=== PATIENT | female | born 1970 | race Two or more races ===

== ENCOUNTER 2022-12-19 09:41 | Emergency (ER) | payer OTHER ==
[~2022-12-19] VITALS: Ht 152.4 cm; Wt 50.2 kg
[2022-12-19 10:07] VITALS: BP 134/70; PULSE 66; RESP 16; TEMP 97.4; O2SAT 97
[2022-12-19] MEDS ORDERED: IBUP-1454 PO (10:50)
[2022-12-19] MEDS ORDERED: MET500T PO (10:50)
== END 2022-12-19 10:59 | disposition home or self-care (01) ==
LOC: ER 09:41
DX: S29.011A Strain of muscle and tendon of front wall of thorax, initial encounter (principal); W18.09XA Striking against other object with subsequent fall, initial encounter; Y93.89 Activity, other specified; Y92.89 Other specified places as the place of occurrence of the external cause; Y99.8 Other external cause status
CPT/HCPCS: 71101

== ENCOUNTER 2023-08-07 16:34 | Emergency (ER) | payer OTHER ==
[~2023-08-07] VITALS: Ht 152.4 cm; Wt 60.6 kg
[~2023-08-07 16:34] MED LIST: IBUP-1454 PO; MET500T PO
[2023-08-07 19:06] VITALS: BP 136/86; RESP 18; TEMP 98.7; O2SAT 96
[2023-08-07 20:34] LABS: Basophils # (auto) 0.1 10 ^3/uL (0-0.2); Basophils % (auto) 0.7 % (0.0-2.0); Eosinophils # (auto) 0.2 10 ^3/uL (0-0.8); Hematocrit 41.1 % (36.0-46.0); Mean Corpuscular Hemoglobin 29.5 pg (28.0-32.0)
[2023-08-07 20:36] LABS: Hemoglobin 13.7 g/dL (12.2-16.2); Lymphocytes # (auto) 3.6 10 ^3/uL (0.4-5.4); Lymphocytes % (auto) 45.9 % (10.0-50.0); Mean Corpuscular Hgb Conc. 33.3 g/dL (32.0-36.0); Mean Corpuscular Volume 88.8 fL (80.0-100.0); Monocytes # (auto) 0.4 10 ^3/uL (0-1.3); Monocytes % (auto) 5.3 % (0.0-12.0); Neutrophils # (auto) 3.5 10 ^3/uL (1.6-8.6); Neutrophils % (auto) 45.1 % (37.0-80.0); Nucleated Red Blood Cells % 0.1 %; Red Blood Cells 4.63 10^6/uL (4.0-5.20); Red Cell Distribution Width 12.9 % (11.8-14.3); White Blood Cell 7.8 10^3/uL (4.4-10.8)
[2023-08-07 20:53] LABS: Alanine Aminotransferase 18 U/L (7-40); Alkaline Phosphatase 103 U/L (46-116); Calcium 10.2 mg/dL (8.5-10.1); Carbon Dioxide 29 mmol/L (20-30); Chloride 105 mmol/L (98-107); Glucose 86 mg/dL (74-106)
[2023-08-07 20:54] LABS: Albumin 4.9 g/dL (3.2-4.8); Anion Gap 6 (5-15); Aspartate Aminotransferase 23 U/L (13-40); BUN/Creatinine Ratio 15.2 (10.0-20.0); Bilirubin, Total 0.3 mg/dL (0.2-1.0); Blood Urea Nitrogen 12 mg/dL (9-23); Potassium 4.4 mmol/L (3.5-5.1); Sodium 140 mmol/L (136-145); Total Protein 7.6 g/dL (5.7-8.2)
[2023-08-07] MEDS ORDERED: DexAMETHasone SOD PHOS 10MG/1ML VIAL INJ IM ONE (21:30)
[2023-08-07] MEDS ORDERED: HYDR-4902 PO (21:36)
[2023-08-07] MEDS ORDERED: IBUP1TAB5 PO (21:36)
[2023-08-07 21:53] VITALS: PULSE 76
[2023-08-07] MEDS: HYDROcodone-ACET 5/325MG TAB PO ONE (22:07)
== END 2023-08-07 22:09 | disposition home or self-care (01) ==
LOC: ER 16:34
DX: M25.512 Pain in left shoulder (principal); Z85.9 Personal history of malignant neoplasm, unspecified; Z79.899 Other long term (current) drug therapy
CPT/HCPCS: 36415; 73030; 80053; 84484; 85025; 85379; 93005

== ENCOUNTER 2024-05-27 09:33 | Inpatient (IN) | payer OTHER ==
[~2024-05-27] VITALS: Ht 152.4 cm; Wt 61.0 kg
[~2024-05-27 09:33] MED LIST changes: +HYDR-4902 PO; +IBUP1TAB5 PO
--- NOTE | 2024-05-27 10:56 | ED.PDOC ---
GI ASSESSMENT HPI Comments 54Y F with PMHx breast CA presents to ED for chief complaint epigastric abd pain x1week. Pt states the abd pain radiates to her back and then to LLE. Pt denies n/v/d, urinary symptoms, chest pain, and SOB. Pt says pain is not related to food. Pt is currently taking Anastrazole. Chief Complaint: Abdominal Pain Time Seen by MD: 10:48 Primary Care Provider: JAIME Reviewed Notes: Nurses Notes, Medications, Allergies Allergies: Coded Allergies: NO KNOWN ALLERGIES (Unverified , 12/19/22) Home Meds Active Scripts Hydrocodone-Acetaminophen (Hydrocodone Bitartrate/AC 5-325 mg) 1 Tab Tab, 1 TAB PO Q6HPRN PRN, #8 TAB severe pain Prov:RODRIGUEZKRISTIA Q REFLOW OPERATOR 08/07/23 Ibuprofen Micronized (Ibuprofen) 600 Mg Tab, 1 TAB PO Q6HPRN PRN, #20 TAB as needed for mild to moderate pain Prov:CAM RODRIGUEZ REFLOW OPERATOR 08/07/23 Metronidazole (Metronidazole) 500 Mg Tab, 500 MG PO BID, #20 TAB Prov:JAY CHOW 12/19/22 Ibuprofen (Ibuprofen) 600 Mg Tab, 1 TAB PO TID, #30 TAB Prov:JAY CHOW 12/19/22 Information Source: Patient Mode of Arrival: Ambulatory Timing: Weeks Duration: Since onset Quality: Sharp Vomitus: None Stool: Normal Severity: Mild Recent: None Recent Hx of: None Pain Location: Epigastric Modifying Factors: Nothing Associated sign and symptoms: Abdominal Pain Past Medical History PAST MEDICAL HISTORY: Cancer Surgical History: Denies all surgeries SOLAR THERMAL TECHNICIAN History: Denies all SOLAR THERMAL TECHNICIAN Hx Family History Family History: Reviewed,noncontributory to illness Social History Smoker: Non-Smoker Alcohol: Denies ETOH Use Drugs: Denies Drug Use Lives In: Home Constitutional: denies: chills, diaphoresis, fatigue, fever, malaise, sweats, weakness, others EENTM: denies: blurred vision, double vision, ear bleeding, ear discharge, ear drainage, ear pain, ear ringing, eye pain, eye redness, hearing loss, mouth pain, mouth swelling, nasal discharge, nose bleeding, nose congestion, nose pain, photophobia, tearing, throat pain, throat swelling, voice changes, others Respiratory: denies: cough, hemoptysis, orthopnea, SOB at rest, shortness of breath, SOB with excertion, stridor, wheezing, others Cardiovascular: denies: chest pain, dizzy spells, diaphoresis, Dyspnea on exertion, edema, irregular heart beat, left arm pain, lightheadedness, palpitati ons, PND, syncope, others Gastrointestinal: reports: abdominal pain; denies: abdomen distended, blood streaked bowels, constipated, diarrhea, dysphagia, difficulty swallowing, hematemesis, melena, nausea, poor appetite, poor fluid intake, rectal bleeding, rectal pain, vomiting, others Genitourinary: denies: abnormal vagina bleeding, burning, dyspareunia, dysuria, flank pain, frequency, hematuria, incontinence, pain, , vagina discharge, urgency, others Neurological: denies: dizziness, fainting, headache, left sided numbness, left sided weakness, numbness, paresthesia, pre-existing deficit, right sided numbness, right sided weakness, seizure, speech problems, tingling, tremors, weakness, others Musculoskeletal: reports: back pain, others (LLE pain); denies: gout, joint pain, joint swelling, muscle pain, muscle stiffness, neck pain Integumetry: denies: bruises, change in color, change in hair/nails, dryness, laceration, lesions, lumps, rash, wounds, others Allergic/Immunocompromised: denies: Difficulty Healing, Frequent Infections, Hives, Itching, others Hematologic/Lymphatic: denies: anemia, blood clots, easy bleeding, easy bruising, swollen glands, others Endocrine: denies: excessive hunger, excessive sweating, excessive thirst, excessive urination, flushing, intolerance to cold, intolerance to heat, unexplained weight gain, unexplained weight loss, others Psychiatric: denies: anxiety, bipolar disorder, depression, hopeless, panic disorder, schizophrenia, sleepless, suicidal, others All Other Systems: Reviewed and Negative Physical Exam General Appearance: No Apparent Distress, Normal HEENT: Normal ENT Inspection, Pharynx Normal, TMs Normal Neck: Full Range of Motion, Non-Tender, Normal, Normal Inspection Respiratory: Chest Non-Tender, Lungs Clear, No Accessory Muscle Use, No Respiratory Distress, Normal Breath Sounds Cardiovascular: No Edema, No JVD, No Murmur, No Gallop, Normal Peripheral Pulses, Regular Rate/Rhythm Breast Exam: Deferred Gastrointestinal: No Organomegaly, Non Tender, No Pulsatile Mass, Normal Bowel Sounds, Soft Genitalia: Deferred Pelvic: Deferred Rectal: Deferred Extremities: No calf tenderness, Normal capillary refill, Normal inspection, Normal range of motion, Non-tender, No pedal edema Musculoskeletal : Apperance: Normal Neurologic: Alert, dial painter II-XII nml as Tested, No Motor Deficits, Normal Affect, Normal Mood, No Sensory Deficits Cerebellar Function: NOT DONE Reflexes: NOT DONE Skin: Dry, Normal Color, Warm Lymphatic: No Adenopathy Was a procedure done? Was a procedure done?: No GI differential Dx Differential Diagnosis: Appendicitis, Gastritis/PUD, Gastroenteritis, Bacterial, Viral X-Ray, Labs, Meds, VS Vital Signs Date Time Temp Pulse Resp B/P (MAP) Pulse Ox O2 Delivery O2 Flow Rate FiO2 05/27/24 13:21 65 16 121/65 (83) 98 05/27/24 11:27 72 18 129/76 05/27/24 10:38 73 18 98 Room Air 05/27/24 10:38 72 18 129/76 (93) 99 05/27/24 09:51 97.4 71 14 131/57 (81) 98 05/27/24 09:49 81 Lab Test 05/27/24 12:13 05/27/24 11:00 Range/Units White Blood Count 7.3 4.4-10.8 10^3/uL Red Blood Count 4.24 4.0-5.20 10^6/uL Hemoglobin 13.0 12.2-16.2 g/dL Hematocrit 38.1 36.0-46.0 % Mean Corpuscular Volume 90.0 80.0-100.0 fL Mean Corpuscular Hemoglobin 30.7 28.0-32.0 pg Mean Corpuscular Hemoglobin Concent 34.1 32.0-36.0 g/dL Red Cell Distribution Width 12.5 11.8-14.3 % Platelet Count 345 140-450 10^3/uL Mean Platelet Volume 7.2 6.9-10.8 fL Neutrophils (%) (Auto) 52.5 37.0-80.0 % Lymphocytes (%) (Auto) 38.9 10.0-50.0 % Monocytes (%) (Auto) 6.7 0.0-12.0 % Eosinophils (%) (Auto) 1.6 0.0-7.0 % Basophils (%) (Auto) 0.3 0.0-2.0 % Neutrophils # (Auto) 3.8 1.6-8.6 10 ^3/uL Lymphocytes # (Auto) 2.8 0.4-5.4 10 ^3/uL Monocytes # (Auto) 0.5 0-1.3 10 ^3/uL Eosinophils # (Auto) 0.1 0-0.8 10 ^3/uL Basophils # (Auto) 0 0-0.2 10 ^3/uL Nucleated Red Blood Cells 0.1 % Sodium Level 143 136-145 mmol/L Potassium Level 4.4 3.5-5.1 mmol/L Chloride Level 111 H 98-107 mmol/L Carbon Dioxide Level 25 20-31 mmol/L Anion Gap 7 5-15 Blood Urea Nitrogen 10 9-23 mg/dL Creatinine 0.73 0.550-1.02 mg/dL Glomerular Filtration Rate Calc 96 >90 mL/min BUN/Creatinine Ratio 13.7 10.0-20.0 Serum Glucose 87 74-106 mg/dL Calcium Level 9.2 8.7-10.4 mg/dL Total Bilirubin 0.5 0.2-1.0 mg/dL Aspartate Amino Transferase (AST) 15 13-40 U/L Alanine Aminotransferase (ALT) 11 7-40 U/L Alkaline Phosphatase 83 46-116 U/L Total Protein 6.9 5.7-8.2 g/dL Albumin 4.3 3.2-4.8 g/dL Urine Color Light-yellow Yellow Urine Clarity Clear Clear Urine pH 5.5 5.0-9.0 Urine Specific [place] 1.024 1.001-1.035 Urine Protein Trace H Negative Urine Ketones Negative Negative Urine Blood Trace H Negative /uL Urine Nitrite Negative Negative Urine Bilirubin Negative Negative Urine Urobilinogen Normal Negative mg/dL Urine Leukocyte Esterase 1+ Negative /uL Urine RBC 1 0 - 4 /hpf Urine WBC 1 0 - 5 /hpf Urine Squamous Epithelial Cells Few <5 /hpf Urine Bacteria Few H None Seen /hpf Urine Mucus Few None Seen Urine Glucose Normal Normal mg/dL Current Medications Medications (Trade) Dose Ordered Sig/[place]ville Route Start Time Stop Time Status Last Admin Sodium Chloride 1,000 ml @ 1,000 mls/hr Q1H ONCE IV 05/27/24 11:00 05/27/24 11:59 DC 05/27/24 11:05 Ondansetron HCl (Zofran) 4 mg ONCE ONCE IV 05/27/24 11:00 05/27/24 11:01 DC 05/27/24 11:26 Pantoprazole Sodium (Protonix) 40 mg ONCE ONCE IV 05/27/24 11:00 05/27/24 11:01 DC 05/27/24 11:26 Morphine Sulfate 4 mg ONCE ONCE IV 05/27/24 11:00 05/27/24 11:01 DC 05/27/24 11:27 Time of 1ST Reevaluation: 11:18 Reevaluation 1ST: Unchanged Patient Education/Counseling: Diagnosis, Treatment Family Education/Counseling: No Family Present Departure 1 Departure Time of Disposition: 16:03 (Patient presented with abdominal pain that was concerning for possible appendicits, gastritis, cholecystitis, colitis, gastroenteritis, sbo, or orther possible surgical emergency. Data: 1. I ordered and reviewed the result of at least 3 labs including a CBC, BMP, and Urinalysis. 2. I independently interpreted the following tests: CT Abdoment and Pelvis is concerning for acute appendicitis .Risk:This patient has a high risk of morbidity due to further diagnostic testing or treatment and may suffer from an acute abdominal process disorder. Workup reveals concerns for acute appendicitis and patient should be admitted for further workup. and possible expert consultation. ) Impression: Primary Impression: Right lower quadrant abdominal pain Additional Impression: Acute appendicitis Qualified Codes: K35.30 - Acute appendicitis with localized peritonitis, without perforation or gangrene Disposition: ADMITTED INPATIENT Admit to: Med Surg Condition: Serious Critical Care Note Critical Care Time?: Yes Critical care comment: Intractable abdominal pain Authorized and Performed by: Angelika Saavedra MD Total critical care time: Approximately 41 minutes Due to a high probability of clinically significant, life threatening deterioration, the patient required my highest level of preparedness to intervene emergently and I personally spent this critical care time directly and personally managing the patient. This critical care time included obtaining a history; examining the patient; pulse oximetry; ordering and review of studies; arranging urgent treatment with development of a management plan; evaluation of patient's response to treatment; frequent reassessment; and, discussions with other providers. This critical care time was performed to assess and manage the high probability of imminent, life-threatening deterioration that could result in multi-organ failure. It was exclusive of separately billable procedures and treating other patients and teaching time. Please see my other sections and the rest of the note for further information on patient assessment and treatment. Stability Stability form required: No Heart Score Heart Score: Heart Score Response (Comments) Value History N/A 0 EKG N/A 0 Age N/A 0 Risk Factors N/A 0 Troponin N/A 0 Total 0 I personally scribed for ANGELIKA SAAVEDRA MD ([email or web address]) on 05/27/24 at 10:56. Electronically submitted by Yudith Avelar ([email or web address]). ANGELIKA SAAVEDRA MD May 27, 2024 10:56
[2024-05-27] MEDS: SODIUM CHLORIDE 0.9% 1,000 ML IV ONE (11:05)
[2024-05-27] MEDS: PANTOPRAZOLE 40 MG/10 ML VIAL INJ IV ONE (11:26)
[2024-05-27] MEDS: ONDANSETRON HCL 4 MG/2 ML VIAL IV ONE ×2 (11:26→22:26)
[2024-05-27] MEDS: MORPHINE SULFATE 4 MG/ML SYR/VIAL IV ONE ×2 (11:27→22:25)
[2024-05-27 11:30] LABS: Urine Bacteria FEW /hpf (None Seen); Urine Blood TRACE /uL (Negative); Urine Clarity Clear (Clear); Urine Color Light-Yellow (Yellow); Urine Mucus FEW (None Seen); Urine Protein, UAD TRACE (Negative); Urine Specific Gravity 1.024 (1.001-1.035); Urine Squamous Epithelial Cell FEW /hpf (<5); Urine Urobilinogen Normal (Negative); Urine WBC 1 /hpf (0 - 5); Urine pH 5.5 (5.0-9.0)
[2024-05-27 13:11] LABS: Basophils # (auto) 0 10 ^3/uL (0-0.2); Basophils % (auto) 0.3 % (0.0-2.0); Eosinophils # (auto) 0.1 10 ^3/uL (0-0.8); Eosinophils % (auto) 1.6 % (0.0-7.0); Hematocrit 38.1 % (36.0-46.0); Lymphocytes # (auto) 2.8 10 ^3/uL (0.4-5.4); Lymphocytes % (auto) 38.9 % (10.0-50.0); Mean Corpuscular Hemoglobin 30.7 pg (28.0-32.0); Mean Corpuscular Hgb Conc. 34.1 g/dL (32.0-36.0); Monocytes # (auto) 0.5 10 ^3/uL (0-1.3); Monocytes % (auto) 6.7 % (0.0-12.0); Neutrophils # (auto) 3.8 10 ^3/uL (1.6-8.6); Neutrophils % (auto) 52.5 % (37.0-80.0); Nucleated Red Blood Cells % 0.1 %; Platelet Count (auto) 345 10^3/uL (140-450); Red Blood Cells 4.24 10^6/uL (4.0-5.20); Red Cell Distribution Width 12.5 % (11.8-14.3); White Blood Cell 7.3 10^3/uL (4.4-10.8)
[2024-05-27 13:17] LABS: Alanine Aminotransferase 11 U/L (7-40); Alkaline Phosphatase 83 U/L (46-116); Anion Gap 7 (5-15); Aspartate Aminotransferase 15 U/L (13-40); BUN/Creatinine Ratio 13.7 (10.0-20.0); Blood Urea Nitrogen 10 mg/dL (9-23); Calcium 9.2 mg/dL (8.7-10.4); Carbon Dioxide 25 mmol/L (20-31); Glucose 87 mg/dL (74-106); Potassium 4.4 mmol/L (3.5-5.1); Sodium 143 mmol/L (136-145)
[2024-05-27 13:18] LABS: Albumin 4.3 g/dL (3.2-4.8); Bilirubin, Total 0.5 mg/dL (0.2-1.0); Chloride 111 mmol/L (98-107); Total Protein 6.9 g/dL (5.7-8.2)
[2024-05-27] MEDS: IOHEXOL 300 MG/ML 100ML BOTTLE IJ ONE (14:17)
--- NOTE | 2024-05-27 14:23 | DVH ---
Exam: CT CT AB PEL WITH IV CON ONLY History: abdominal pain hx of breast ca COMPARISON: None Technique: Multidetector spiral CT of the abdomen and pelvis was performed from lung bases to pubic symphysis. Intravenous contrast was administered during this examination. Portal venous imaging was obtained. Axial, coronal and sagittal multiplanar reformats were performed by the technologist on a separate workstation. Radiation Dose : Abdomen/Pelvis: CTDIvol 7 mGy, DLP 308 mGy*cm. CONTRAST: Type of contrast: Omni 300 Contrast injected: 100 mL Findings: Lung Bases: No acute or significant lung base finding. Normal heart size. No pleural or pericardial effusion. Liver: Left hepatic cysts measuring up to 14 mm. Gallbladder and biliary Tree: Cholelithiasis noted without secondary findings of cholecystitis or ashley iary obstruction. Spleen: Unremarkable Pancreas: The pancreas is normal in appearance without focal lesions or abnormal enhancement. Adrenal Glands: Unremarkable Kidneys: Mild left hydronephrosis. No obstructing calculus identified. Right kidney appears unremar kable. Bladder: Unremarkable Bowel: The stomach is grossly normal in appearance. Small bowel and colon are normal in caliber and d istribution. Abnormal appearing appendix with wall thickening and enhancement. Mild dilation. No si gnificant periappendiceal stranding. Several adjacent subcentimeter right lower quadrant lymph nodes. Ascites: Absent Lymphadenopathy: Right lower quadrant lymphadenopathy as above. Abdominal wall and Mesentery: Unremarkable. Vasculature: The visualized abdominal aorta is normal in size and caliber. Abdominal and pelvic vess els demonstrate normal enhancement. Pelvic Organs: Unremarkable Musculoskeletal: No aggressive focal bony lesions, acute fractures or dislocation. IMPRESSION: 1. Abnormal appearance of the appendix with mild dilation and wall thickening. Adjacent prominent lym ph nodes are noted. No significant periappendiceal stranding. Findings could be seen in the setting of acute appendicitis. A mucocele of the appendix could have a similar appearance. Clinical correla tion and surgical evaluation is recommended. 2. Hepatic cysts. Mild left hydronephrosis. No definite evidence of metastatic disease to the abdome n and pelvis. Radiation optimization: All CT scans at this facility use at least one of these dose optimization presley hniques: Automated exposure control mA and/or kV adjustment per patient size (includes targeted exams where dose is matched to clinical indication) or iterative reconstruction. HS:Y
[2024-05-27] MEDS ORDERED: DOCUSATE SOD 100 MG CAP PO PRN (20:00)
[2024-05-27] MEDS ORDERED: NITROGLYCERIN 0.4 MG SL TAB SL PRN (20:45)
[2024-05-27] MEDS ORDERED: MORPHINE SULFATE INJ 2 MG/ml SYRG IV PRN (20:45)
--- NOTE | 2024-05-27 20:47 | DVHHP2 ---
History of Present Illness Reason for Visit: Acute appendicitis History of Present Illness The patient is a 54-year-old female with past medical history of cancer who presented to [facility] ED with complaint of epigastric abdominal pain for the past 1 week duration. Patient reports symptoms progressively get worse with intractable abdominal pain, radiating to her back, to left lower extremity, rating pain 7/10 numeric scale, getting worse that prompted this visit. Patient was seen and evaluated in the ED, laboratory data shows WBC 7.3, platelets 305, sodium 143, potassium 4.4, BUN 10, creatinine 0.73, GFR 96, glucose 97, blood pressure 139/82, heart rate 72, temperature 97.4 F, O2 saturation 98% on room air. Abdomen/pelvis CT revealing abnormal appearance of the appendix with mild dilatation and wall thickening, adjacent prominent lymph nodes are noted, no significant periappendiceal stranding, finding could be seen in the setting of acute appendicitis. Patient was started on IV antibiotic regimen Rocephin, please see medication orders section in the computer. On my assessment, patient denies chest pain, no headache, no dizziness, no diarrhea, nausea, vomiting, no fever, no chills. Patient was admitted for further evaluation and medical management. Past Medical History Cancer Past Surgical History Denies all surgeries Family History Reviewed, noncontributory to the management of this case. Past Social History The patient lives at home, denies smoking, alcohol or illicit drugs abuse. Review of Systems Constitutional: No: Fever, Chills, Sweats, Weakness, Malaise, Other Eyes: No: Pain, Vision change, Conjunctivae inflammation, Eyelid inflammation, Other, Redness ENT: No: Ear pain, Ear discharge, Nose pain, Nose discharge, Nose congestion, Mouth pain, Mouth swelling, Throat pain, Throat swelling, Other Respiratory: No: Cough, Dry, Shortness of breath, SOB with excertion, Wheezing, Hemoptysis, Pleuritic Pain, Sputum, Wheezing, Other Cardiovascular: No: Chest Pain, Palpitations, Orthopnea, Paroxysmal Noc. Dyspnea, Edema, Lt Headedness, Other Gastrointestinal: Abdominal Pain; No: Nausea, Vomiting, Diarrhea, Constipation, Melena, Hematochezia, Other Genitourinary: No Dysuria, No Frequency, No Incontinence, No Hematuria, No Retention, No Other Musculoskeletal: other (LLE pain); No: neck pain, shoulder pain, arm pain, back pain, hand pain, leg pain, foot pain Skin: No: Rash, Lesions, Jaundice, Bruising, Other Neurological: No: Weakness, Numbness, Incoordination, Change in speech, Confusion, Seizures, Other Allergies: Coded Allergies: NO KNOWN ALLERGIES (Unverified , 12/19/22) Medications Current Medications Medications Dose Ordered Sig/[place]ville Route Start Time Stop Time Status Last Admin Dose Admin Ceftriaxone Sodium 50 ml @ 100 mls/hr DAILY@09 IV 05/27/24 20:08 Metronidazole 100 ml @ 100 mls/hr Q8HR IV 05/27/24 22:00 Acetaminophen/ Hydrocodone Bitart 1 tab Q4HP PRN PO 05/27/24 20:00 Ondansetron HCl 4 mg Q4HP PRN IV 05/27/24 20:00 Docusate Sodium 100 mg BIDPRN PRN PO 05/27/24 20:00 Acetaminophen 650 mg Q6HP PRN PO 05/27/24 20:00 Morphine Sulfate 2 mg Q4HPRN PRN IV 05/27/24 20:00 Dextrose/Sodium Chloride 1,000 ml @ 75 mls/hr [id number] IV 05/27/24 20:00 Exam Vital Signs Vital Signs Date Time Temp Pulse Resp B/P (MAP) Pulse Ox O2 Delivery O2 Flow Rate FiO2 05/27/24 20:32 97.9 69 142/86 (104) 97 97.9 05/27/24 17:27 16 05/27/24 10:38 Room Air General Appearance: Alert, Oriented X3, Cooperative, No acute distress HEENT: Atraumatic, PERRLA, EOMI, Mucous membr. moist/pink Respiratory: Clear to auscultation, Normal air movement Cardiovascular: Regular rate, Normal S1, Normal S2, No murmurs Abdominal: Normal bowel sounds, Soft, No hepatospenomegaly, No masses, Other (Reports tenderness) Extremities: No clubbing, No cyanosis, No edema, Normal pulses, No tenderne ss/swelling Skin: No rashes, No breakdown, No significant lesion Neuro: Normal gait, Normal speech, Strength at 5/5 X4 ext, Normal tone, Sensation intact, Cranial nerves 3-12 NL, Reflexes 2+ Psych/Mental Status: Mental status NL, Mood NL Labs/Xrays Labs Test 05/27/24 12:13 05/27/24 11:00 Range/Units White Blood Count 7.3 4.4-10.8 10^3/uL Red Blood Count 4.24 4.0-5.20 10^6/uL Hemoglobin 13.0 12.2-16.2 g/dL Hematocrit 38.1 36.0-46.0 % Mean Corpuscular Volume 90.0 80.0-100.0 fL Mean Corpuscular Hemoglobin 30.7 28.0-32.0 pg Mean Corpuscular Hemoglobin Concent 34.1 32.0-36.0 g/dL Red Cell Distribution Width 12.5 11.8-14.3 % Platelet Count 345 140-450 10^3/uL Mean Platelet Volume 7.2 6.9-10.8 fL Neutrophils (%) (Auto) 52.5 37.0-80.0 % Lymphocytes (%) (Auto) 38.9 10.0-50.0 % Monocytes (%) (Auto) 6.7 0.0-12.0 % Eosinophils (%) (Auto) 1.6 0.0-7.0 % Basophils (%) (Auto) 0.3 0.0-2.0 % Neutrophils # (Auto) 3.8 1.6-8.6 10 ^3/uL Lymphocytes # (Auto) 2.8 0.4-5.4 10 ^3/uL Monocytes # (Auto) 0.5 0-1.3 10 ^3/uL Eosinophils # (Auto) 0.1 0-0.8 10 ^3/uL Basophils # (Auto) 0 0-0.2 10 ^3/uL Nucleated Red Blood Cells 0.1 % Sodium Level 143 136-145 mmol/L Potassium Level 4.4 3.5-5.1 mmol/L Chloride Level 111 H 98-107 mmol/L Carbon Dioxide Level 25 20-31 mmol/L Anion Gap 7 5-15 Blood Urea Nitrogen 10 9-23 mg/dL Creatinine 0.73 0.550-1.02 mg/dL Glomerular Filtration Rate Calc 96 >90 mL/min BUN/Creatinine Ratio 13.7 10.0-20.0 Serum Glucose 87 74-106 mg/dL Calcium Level 9.2 8.7-10.4 mg/dL Total Bilirubin 0.5 0.2-1.0 mg/dL Aspartate Amino Transferase (AST) 15 13-40 U/L Alanine Aminotransferase (ALT) 11 7-40 U/L Alkaline Phosphatase 83 46-116 U/L Total Protein 6.9 5.7-8.2 g/dL Albumin 4.3 3.2-4.8 g/dL Urine Color Light-yellow Yellow Urine Clarity Clear Clear Urine pH 5.5 5.0-9.0 Urine Specific [place] 1.024 1.001-1.035 Urine Protein Trace H Negative Urine Ketones Negative Negative Urine Blood Trace H Negative /uL Urine Nitrite Negative Negative Urine Bilirubin Negative Negative Urine Urobilinogen Normal Negative mg/dL Urine Leukocyte Esterase 1+ Negative /uL Urine RBC 1 0 - 4 /hpf Urine WBC 1 0 - 5 /hpf Urine Squamous Epithelial Cells Few <5 /hpf Urine Bacteria Few H None Seen /hpf Urine Mucus Few None Seen Urine Glucose Normal Normal mg/dL PATIENT: MORGAN FREIRE ACCT: [id number] UNIT: [id number] : 1970 LOC: ER ROOM / BED: / AGE / SEX: 54 / F ADM STATUS: REG ER SERVICE 1052 ORDERING PHYSICIAN: ANGELIKA SAAVEDRA MD PROCEDURE(s): ABPLIV - CT AB PEL WITH IV CON ONLY REASON: abdominal pain hx of breast ca ORDER NUMBER(s): [id number], ACCESSION NUMBER(s): [id number] Exam: CT CT AB PEL WITH IV CON ONLY History: abdominal pain hx of breast ca COMPARISON: None Technique: Multidetector spiral CT of the abdomen and pelvis was performed from lung bases to pubic symphysis. Intravenous contrast was administered during this examination. Portal venous imaging was obtained. Axial, coronal and sagittal multiplanar reformats were performed by the technologist on a separate workstation. Radiation Dose : Abdomen/Pelvis: CTDIvol 7 mGy, DLP 308 mGy*cm. CONTRAST: Type of contrast: Omni 300 Contrast injected: 100 mL Findings: Lung Bases: No acute or significant lung base finding. Normal heart size. No pleural or pericardial effusion. Liver: Left hepatic cysts measuring up to 14 mm. Gallbladder and biliary Tree: Cholelithiasis noted without secondary findings of cholecystitis or biliary obstruction. Spleen: Unremarkable Pancreas: The pancreas is normal in appearance without focal lesions or abnormal enhancement. Adrenal Glands: Unremarkable Kidneys: Mild left hydronephrosis. No obstructing calculus identified. Right kidney appears unremarkable. Bladder: Unremarkable Bowel: The stomach is grossly normal in appearance. Small bowel and colon are normal in caliber and distribution. Abnormal appearing appendix with wall thickening and enhancement. Mild dilation. No significant periappendiceal stranding. Several adjacent subcentimeter right lower quadrant lymph nodes. Ascites: Absent Lymphadenopathy: Right lower quadrant lymphadenopathy as above. Abdominal wall and Mesentery: Unremarkable. Vasculature: The visualized abdominal aorta is normal in size and caliber. Abdominal and pelvic vessels demonstrate normal enhancement. Pelvic Organs: Unremarkable Musculoskeletal: No aggressive focal bony lesions, acute fractures or dislocation. IMPRESSION: 1. Abnormal appearance of the appendix with mild dilation and wall thickening. Adjacent prominent lymph nodes are noted. No significant periappendiceal stranding. Findings could be seen in the setting of acute appendicitis. A mucocele of the appendix could have a similar appearance. Clinical correlation and surgical evaluation is recommended. 2. Hepatic cysts. Mild left hydronephrosis. No definite evidence of metastatic disease to the abdomen and pelvis. Assessment/Plan Assessment/Plan Right lower quadrant abdominal pain Acute appendicitis Acute appendicitis with localized peritonitis, without perforation or gangrene Plan 1. Admit to telemetry unit 2. Breathing treatment 3. Pain control management 4. IV antibiotic management 5. Management of fluids and electrolytes 6. Consultation for surgical team 7. Diagnostic test abdomen/pelvis CT 8. DVT prophylaxis-on SCDs 9. Repeat labs CBC, CMP in a.m. 10. Continue with current medical management 11. Treatment plan discussed with patient and RN. Patient verbalized understanding. Plan discussed with: Patient, Other (RN) My Orders Orders - JEAN-PIERRE GUERRERO DNP Procedure Category Date Status Time Metronidazole PHA 05/27/24 In Process 500mg/100ml (Flagyl 22:00 Urine Bacterial BURT 05/27/24 Logged Culture 19:51 Allergies IRAIDA 05/27/24 In Process 19:51 Code Status CODE 05/27/24 Transmitted 19:51 Oxygen Per Hour RT 05/27/24 Transmitted 19:51 Hydrocodone-Acet PHA 05/27/24 In Process 5/325mg Tab (D Hanis 20:00 Ondansetron Hcl PHA 05/27/24 In Process (Zofran) 20:00 Docusate Sodium PHA 05/27/24 In Process Capsule (Colace 20:00 Complete Blood Count LAB 05/28/24 Verified 04:00 Comprehensive LAB 05/28/24 Verified Metabolic Panel 04:00 Npo (Nothing By DIET 05/28/24 Transmitted Mouth) Diet Breakfast Condition: Serious IRAIDA 05/27/24 In Process 19:51 Acetaminophen Tablet PHA 05/27/24 In Process (Tylenol Tablet) 20:00 Bedrest With Bathroom IRAIDA 05/27/24 In Process Privileg 19:51 Morphine Sulfate PHA 05/27/24 In Process Injection 20:00 Sequential IRAIDA 05/27/24 In Process Compression Device D5w/Sod Chl 0.45% PHA 05/27/24 In Process (D5w 1/2ns) 20:00 Ceftriaxone 1gm/50ml PHA 05/27/24 In Process D5w (Rocephin) 20:08 Problem List: (1) Right lower quadrant abdominal pain (2) Acute appendicitis (3) Acute appendicitis with localized peritonitis, without perforation or gangrene Date of Service: May 27, 2024 Billing Provider: JEAN-PIERRE GUERRERO DNP Common Visit Codes: 56122-UBUESND INP/OBS CARE (HIGH) JEAN-PIERRE GUERRERO DNP May 27, 2024 20:47
[2024-05-27] MEDS: ceFAZolin 2 GM/D5W50ml 50 ML IV ONE (22:25)
[2024-05-27] MEDS: metroNIDAZOLE 500MG/100ML 100 ML IV ONE (22:26)
[2024-05-27 23:03] VITALS: BP 132/77; PULSE 59; RESP 18; TEMP 97.8; O2SAT 97
[2024-05-27 23:45] VITALS: BP 132/77; PULSE 59; RESP 18; TEMP 97.8; O2SAT 97
[2024-05-27] MEDS: cefTRIAXone 1GM/50ML D5W 50 ML IV SCH (23:55)
[2024-05-28] VITALS (7 sets, daily range): BP systolic 113–137; BP diastolic 71–92; PULSE 82–96; RESP 18–20; TEMP 97.3–98.3; O2SAT 93–97
[2024-05-28] MEDS: D5W/SOD CHL 0.45% 1,000 ML IV SCH (00:29)
[2024-05-28] MEDS: metroNIDAZOLE 500MG/100ML 100 ML IV SCH (00:29)
[2024-05-28] MEDS: MORPHINE SULFATE INJ 2 MG/ml SYRG IV PRN (00:30)
[2024-05-28] MEDS ORDERED: ANAS1TAB7 PO (00:57)
[2024-05-28] MEDS: ONDANSETRON HCL 4 MG/2 ML VIAL IV PRN (04:38)
[2024-05-28 06:27] LABS: Basophils # (auto) 0 10 ^3/uL (0-0.2); Basophils % (auto) 0.4 % (0.0-2.0); Eosinophils # (auto) 0.2 10 ^3/uL (0-0.8); Eosinophils % (auto) 1.7 % (0.0-7.0); Hematocrit 36.5 % (36.0-46.0); Hemoglobin 12.6 g/dL (12.2-16.2); Lymphocytes # (auto) 1.9 10 ^3/uL (0.4-5.4); Lymphocytes % (auto) 18.3 % (10.0-50.0); Mean Corpuscular Hgb Conc. 34.6 g/dL (32.0-36.0); Mean Corpuscular Volume 89.8 fL (80.0-100.0); Monocytes # (auto) 0.7 10 ^3/uL (0-1.3); Monocytes % (auto) 6.8 % (0.0-12.0); Neutrophils # (auto) 7.5 10 ^3/uL (1.6-8.6); Neutrophils % (auto) 72.8 % (37.0-80.0); Platelet Count (auto) 367 10^3/uL (140-450); Red Blood Cells 4.07 10^6/uL (4.0-5.20); Red Cell Distribution Width 12.6 % (11.8-14.3); White Blood Cell 10.3 10^3/uL (4.4-10.8)
[2024-05-28 07:03] LABS: Alanine Aminotransferase 11 U/L (7-40); Alkaline Phosphatase 81 U/L (46-116); Anion Gap 8 (5-15); BUN/Creatinine Ratio 10.4 (10.0-20.0); Calcium 9.4 mg/dL (8.7-10.4); Carbon Dioxide 25 mmol/L (20-31); Glucose 85 mg/dL (74-106); Sodium 141 mmol/L (136-145)
[2024-05-28 07:04] LABS: Albumin 4.1 g/dL (3.2-4.8); Aspartate Aminotransferase 13 U/L (13-40); Blood Urea Nitrogen 8 mg/dL (9-23); Chloride 108 mmol/L (98-107); Potassium 3.5 mmol/L (3.5-5.1)
[2024-05-28 07:05] LABS: Total Protein 6.5 g/dL (5.7-8.2)
[2024-05-28 07:37] LABS: Bilirubin, Total 0.4 mg/dL (0.2-1.0)
[2024-05-28] MEDS: ACETAMINOPHEN 325 MG TAB PO PRN (09:53)
[2024-05-28] MEDS: HYDROcodone-ACET 5/325MG TAB PO PRN (14:43)
--- NOTE | 2024-05-28 15:36 | DVHINCON2 ---
Date of service: May 28, 2024 Family History: Diabetes mellitus G8 MOTHER Hypertension G8 MOTHER G8 FATHER Allergies: Coded Allergies: NO KNOWN ALLERGIES (Unverified , 12/19/22) Home Meds Reported Medications Anastrozole (Anastrozole) 1 Mg Tab, 1 TAB PO DAILY, #30 TAB 5 Refills 05/28/24 Current Medications Current Medications Medications (Trade) Dose Ordered Sig/[place] Route PRN Reason Start Time Stop Time Status Last Admin Ceftriaxone Sodium 50 ml @ 100 mls/hr DAILY@09 IV 05/27/24 20:08 05/28/24 09:54 Metronidazole 100 ml @ 100 mls/hr Q8HR IV 05/27/24 22:00 05/28/24 14:33 Acetaminophen/ Hydrocodone Bitart ([place] 5/325MG Tab) 1 tab Q4HP PRN PO MODERATE PAIN (4-6 PAIN SCALE) 05/27/24 20:00 05/28/24 14:43 Ondansetron HCl (Zofran) 4 mg Q4HP PRN IV NAUSEA / VOMITING 05/27/24 20:00 05/28/24 14:42 Docusate Sodium (Colace Capsule) 100 mg BIDPRN PRN PO FOR CONSTIPATION 05/27/24 20:00 Acetaminophen (Tylenol Tablet) 650 mg Q6HP PRN PO PAIN SCALE 1-3 OR TEMP>100.4 05/27/24 20:00 05/28/24 09:53 Morphine Sulfate 2 mg Q4HPRN PRN IV SEVERE PAIN (7-10 PAIN SCALE) 05/27/24 20:00 05/28/24 04:41 Dextrose/Sodium Chloride 1,000 ml @ 75 mls/hr [id number] IV 05/27/24 20:00 05/28/24 00:29 Nitroglycerin (Ntrostat Sublingual) 0.4 mg Q5MINP PRN SL FOR CHEST PAIN 05/27/24 20:45 Morphine Sulfate 2 mg Q30M PRN IV FOR CHEST PAIN 05/27/24 20:45 Vital Signs Vital Signs Date Time Temp Pulse Resp B/P (MAP) Pulse Ox O2 Delivery O2 Flow Rate FiO2 05/28/24 13:00 98.2 82 20 113/71 (85) 97 98.2 05/27/24 23:03 Room Air* 0 21 Labs/Diagnostic Data Labs Test 05/28/24 05:55 05/27/24 11:00 Range/Units White Blood Count 10.3 # 4.4-10.8 10^3/uL Red Blood Count 4.07 4.0-5.20 10^6/uL Hemoglobin 12.6 12.2-16.2 g/dL Hematocrit 36.5 36.0-46.0 % Mean Corpuscular Volume 89.8 80.0-100.0 fL Mean Corpuscular Hemoglobin 31.0 28.0-32.0 pg Mean Corpuscular Hemoglobin Concent 34.6 32.0-36.0 g/dL Red Cell Distribution Width 12.6 11.8-14.3 % Platelet Count 367 140-450 10^3/uL Mean Platelet Volume 7.3 6.9-10.8 fL Neutrophils (%) (Auto) 72.8 37.0-80.0 % Lymphocytes (%) (Auto) 18.3 10.0-50.0 % Monocytes (%) (Auto) 6.8 0.0-12.0 % Eosinophils (%) (Auto) 1.7 0.0-7.0 % Basophils (%) (Auto) 0.4 0.0-2.0 % Neutrophils # (Auto) 7.5 1.6-8.6 10 ^3/uL Lymphocytes # (Auto) 1.9 0.4-5.4 10 ^3/uL Monocytes # (Auto) 0.7 0-1.3 10 ^3/uL Eosinophils # (Auto) 0.2 0-0.8 10 ^3/uL Basophils # (Auto) 0 0-0.2 10 ^3/uL Nucleated Red Blood Cells 0.0 % Sodium Level 141 136-145 mmol/L Potassium Level 3.5 3.5-5.1 mmol/L Chloride Level 108 H 98-107 mmol/L Carbon Dioxide Level 25 20-31 mmol/L Anion Gap 8 5-15 Blood Urea Nitrogen 8 L 9-23 mg/dL Creatinine 0.77 0.550-1.02 mg/dL Glomerular Filtration Rate Calc 90 >90 mL/min BUN/Creatinine Ratio 10.4 10.0-20.0 Serum Glucose 85 74-106 mg/dL Calcium Level 9.4 8.7-10.4 mg/dL Total Bilirubin 0.4 0.2-1.0 mg/dL Aspartate Amino Transferase (AST) 13 13-40 U/L Alanine Aminotransferase (ALT) 11 7-40 U/L Alkaline Phosphatase 81 46-116 U/L Total Protein 6.5 5.7-8.2 g/dL Albumin 4.1 3.2-4.8 g/dL Urine Color Light-yellow Yellow Urine Clarity Clear Clear Urine pH 5.5 5.0-9.0 Urine Specific [place] 1.024 1.001-1.035 Urine Protein Trace H Negative Urine Ketones Negative Negative Urine Blood Trace H Negative /uL Urine Nitrite Negative Negative Urine Bilirubin Negative Negative Urine Urobilinogen Normal Negative mg/dL Urine Leukocyte Esterase 1+ Negative /uL Urine RBC 1 0 - 4 /hpf Urine WBC 1 0 - 5 /hpf Urine Squamous Epithelial Cells Few <5 /hpf Urine Bacteria Few H None Seen /hpf Urine Mucus Few None Seen Urine Glucose Normal Normal mg/dL Assessment [id number] AFEBRILE VSS ABD SOFT TENDER RUQ AND RLQ NO REBOUND CT ABD PELVIS NO CONFIRMING AC APPENDICITIS CHOLELITHIASIS CLOSE OBSERVATION REPEAT CT ABD AND PELVIS WITH PO CONTRAST TO DETERMINE THE NEED FOR SURGERY Plan discussed with: Patient GENO GUZMÁN MD May 28, 2024 15:36
--- NOTE | 2024-05-28 19:43 | DVHINCON2 ---
DATE OF CONSULTATION: 05/28/2024 HISTORY OF PRESENT ILLNESS: A 54 years old, coming in with upper abdominal pain with history of cancer, mostly the pain is in the epigastric location over the past 1 week, some nausea, vomiting, but no diarrhea. She had some mild constipation and then diarrhea. No fever or chills. No hematemesis, melena. No bleeding per rectum. PAST MEDICAL HISTORY: Some cancer is reported, but details are not clear. PAST SURGICAL HISTORY: Nothing significant. PHYSICAL EXAMINATION: VITAL SIGNS: Afebrile, stable signs. HEENT: With no evidence of pallor, cyanosis, or jaundice. NECK: Supple, nontender with no thyromegaly, lymphadenopathy. CHEST AND LUNGS: Clear. HEART: Within normal limits. ABDOMEN: Soft, tender in the upper abdomen, also in the lower abdomen. No rebound. EXTREMITIES: Unremarkable. NEUROLOGIC: Intact. CLINICAL IMPRESSION: Rule out acute appendicitis. She also has cholelithiasis. The CT scan is not confirming acute appendicitis, but it cannot be ruled out, so the plan will to keep her under close observation, repeat the CT scan with p.o. contrast to determine the need for surgery. MD DOMINIK French/KELSIE TID: [id number] RECEIPT: [id number] cc: Clark Golud DNP
--- NOTE | 2024-05-28 21:56 | DVHPN2 ---
Subjective Patient continues to have abdominal pain, conveniently tolerate p.o.. Abdomen is tender right lower quadrant and right upper quadrant. No acute abdomen signs. No peritonitis no guarding or rigidity. Surgery following we will plan to repeat imaging. Reviewed: H&P Changes from previous H/P or p: No Changes General: Per HPI Musculoskeletal: other Skin: No Rash, No Lesions, No Jaundice, No Bruising, No Other Objective Vitals Vital Signs Date Time Temp Pulse Resp B/P (MAP) Pulse Ox O2 Delivery O2 Flow Rate FiO2 05/28/24 21:00 97.3 89 20 133/85 (101) 93 97.3 05/28/24 20:00 Room Air* 0 21 Intake/Output Intake and Output 05/28/24 07:00 Intake Total 2450 ml Balance 2450 ml Intake Oral 0 ml IV Total 2450 ml # Voids 1 Exam GEN: Healthy appearing, well-developed, patient is mild distress from abdominal pain HEENT: NC/AT; MMM. CV: RRR, no m/r/g. LUNGS: Bibasilar rales ABD: Abdomen is tender right lower quadrant and right upper quadrant. No acute abdomen signs. No peritonitis no guarding or rigidity. EXT: skin Warm, well perfused. no rashes. No clubbing, cyanosis, or edema. NEURO: Ambulating with no limitations. No focal deficits. Patient continues to have abdominal pain, conveniently tolerate p.o.. Abdomen is tender right lower quadrant and right upper quadrant. No acute abdomen signs. No peritonitis no guarding or rigidity. Surgery following we will plan to repeat imaging. Medications Current Medications Medications Dose Ordered Sig/[place]ville Route Start Time Stop Time Status Last Admin Dose Admin Ceftriaxone Sodium 50 ml @ 100 mls/hr DAILY@09 IV 05/27/24 20:08 05/28/24 09:54 100 MLS/HR Metronidazole 100 ml @ 100 mls/hr Q8HR IV 05/27/24 22:00 05/28/24 14:33 100 MLS/HR Acetaminophen/ Hydrocodone Bitart 1 tab Q4HP PRN PO 05/27/24 20:00 05/28/24 14:43 1 TAB Ondansetron HCl 4 mg Q4HP PRN IV 05/27/24 20:00 05/28/24 14:42 4 MG Docusate Sodium 100 mg BIDPRN PRN PO 05/27/24 20:00 Acetaminophen 650 mg Q6HP PRN PO 05/27/24 20:00 05/28/24 09:53 650 MG Morphine Sulfate 2 mg Q4HPRN PRN IV 05/27/24 20:00 05/28/24 04:41 2 MG Dextrose/Sodium Chloride 1,000 ml @ 75 mls/hr [id number] IV 05/27/24 20:00 05/28/24 00:29 75 MLS/HR Nitroglycerin 0.4 mg Q5MINP PRN SL 05/27/24 20:45 Morphine Sulfate 2 mg Q30M PRN IV 05/27/24 20:45 Laboratory Results Laboratory Tests 05/28/24 05:55 Chemistry Test 05/28/24 05:55 Albumin 4.1 g/dL (3.2-4.8) Calcium Level 9.4 mg/dL (8.7-10.4) Total Protein 6.5 g/dL (5.7-8.2) LFT Test 05/28/24 05:55 Alanine Aminotransferase (ALT) 11 U/L (7-40) Alkaline Phosphatase 81 U/L (46-116) Aspartate Amino Transferase (AST) 13 U/L (13-40) Total Bilirubin 0.4 mg/dL (0.2-1.0) Urinalysis Test 05/27/24 11:00 Urine Color Light-yellow (Yellow) Urine Clarity Clear (Clear) Urine pH 5.5 (5.0-9.0) Urine Specific [place] 1.024 (1.001-1.035) Urine Protein Trace (Negative) H Urine Ketones Negative (Negative) Urine Blood Trace /uL (Negative) H Urine Nitrite Negative (Negative) Urine Bilirubin Negative (Negative) Urine Urobilinogen Normal mg/dL (Negative) Urine Leukocyte Esterase 1+ /uL (Negative) Urine RBC 1 /hpf (0 - 4) Urine WBC 1 /hpf (0 - 5) Urine Squamous Epithelial Cells Few /hpf (<5) Urine Bacteria Few /hpf (None Seen) H Urine Mucus Few (None Seen) Urine Glucose Normal mg/dL (Normal) Labs and/or images reviewed: Labs reviewed by me, Image(s) reviewed by me Assessment/Plan Assessment/Plan 05/28-Abdomen is tender right lower quadrant and right upper quadrant. No acute abdomen signs. No peritonitis no guarding or rigidity. # acute intractable abdominal pain # possible acute appendicitis, rule out # left hydronephrosis possible # intravascular volume depletion # decreased p.o. tolerance, intractable nausea - patient presenting with acute abdominal pain epigastric radiating to the back, - lipase not collected on admit, no leukocytosis no neutrophilia - UA SG 1.024, concentrated urine - CT abdpelv w/o Con - left hydronephrosis possible, possible acute appendicitis. -started on IV fluids - IV antibiotics ceftriaxone and Flagyl IV -surgery consulted and following, -NPO midnight, clear liquid diet otherwise -we will repeat CT abdomen pelvis with p.o. contrast as per surgery recommendations Diet to liquid diet, NPO midnight DVT prophylaxis Lovenox subQ GI prophylaxis Protonix IV daily Med tele Full code Plan discussed with: Patient My Orders Orders - JAMAL LY MD Procedure Category Date Status Time Ct Abd Pelvis W CT 05/28/24 Transmitted Con-Oral & Iv 21:44 Date of Service: May 28, 2024 Billing Provider: JAMAL LY MD Common Visit Codes: [id number] INP/OBS CARE(HIGH) JAMAL LY MD May 28, 2024 21:56
[2024-05-29] VITALS (8 sets, daily range): BP systolic 100–160; BP diastolic 63–89; PULSE 80–100; RESP 13–20; TEMP 98–99.3; O2SAT 93–100
[2024-05-29] MEDS ORDERED: GASTROGRAFIN 30 ML SOL ONE (07:45)
--- NOTE | 2024-05-29 11:24 | DVH ---
Exam: CT CT AB PEL WITH ORAL CON ONLY History: DIFFERENTIATE CAUSE OF ABD PAIN Comparison Study: None available at time of dictation. Technique: Multidetector spiral CT of the abdomen was performed from lung bases to iliac crest. Imag ing was performed without IV contrast. Axial, coronal and sagittal multiplanar reformats were obtain ed from the axial data set by the technologist. Radiation Dose : CT Dose: CTDI volume is 5.97 mGy. Dose-length product is 268 mGy*cm Findings: Evaluation of solid organs is limited due to lack of intravenous contrast use. Lung Bases: Subsegmental atelectasis in the lung bases. Liver: 1.6 cm hypodense lesion in the hepatic segment 2 at series 2 image 15. It is indeterminate. Gallbladder and Biliary Tree: Multiple dependent layering of gallbladder calculi, measuring collectiv selina up to 1 cm. Hyperdense sludge in the gallbladder. Spleen: Unremarkable Pancreas: The pancreas is grossly normal in appearance. Adrenal Glands: Unremarkable Kidneys: Kidneys are grossly normal without calculi or hydronephrosis. Left extrarenal pelvis. Visualized Bowel: The appendix is swollen and inflamed with maximum diameter of 1.2 cm. Its tip is i n the right pelvis. There is eccentric thickening of the cecum and terminal ileum. Periappendiceal fa t stranding and small pelvic free fluid. No focal fluid collection. Multiple enlarged and prominent r ight mesenteric lymph nodes. Ascites: Small amount of pelvic free fluid. Lymphadenopathy: Mesenteric lymphadenopathy in the right lower quadrant. Vasculature: The visualized abdominal aorta is normal in size and caliber. Evaluation of abdominal a nd pelvic vessels is limited due to lack of intravenous contrast. Musculoskeletal: No aggressive focal bony lesions, acute fractures or dislocation. IMPRESSION: 1. CT findings are consistent with acute appendicitis. No focal fluid collection. Surgical consultat ion is suggested. 2. Indeterminate hypodense lesion in the hepatic segment 2, further evaluation with CT or MRI liver m ass protocol is suggested. Acute appendicitis Critical Result: Acute appendicitis Alert Findings discussed with MAYA Lebron, at 05/29/2024 02:21 PM, and acknowledged receipt and understanding of the findings. Radiation optimization: All CT scans at this facility use at least one of these dose optimization presley hniques: automated exposure control mA and/or kV adjustment per patient size (includes targeted exam s where dose is matched to clinical indication) or iterative reconstruction.
[2024-05-29] MEDS ORDERED: ceFAZolin 2 GM/D5W100ml 100 ML IV ONE (13:11)
[2024-05-29] MEDS ORDERED: LIDOCAINE 1% HCL (LOCAL ANESTH.) INJ 20ML MDV ONE (13:40)
[2024-05-29] MEDS ORDERED: BUPIVACAINE 0.25% INJ 50ML VIAL ONE (13:40)
[2024-05-29] MEDS ORDERED: PROPOFOL 10 MG/ML 20 ML IV ONE (13:42)
[2024-05-29] MEDS ORDERED: LIDOCAINE 2% (LOCAL ANESTH.) PF 5ml SDV ONE (13:42)
[2024-05-29] MEDS ORDERED: fentaNYL CITRATE 100 MCG/2 ML VL ONE (13:42)
[2024-05-29] MEDS ORDERED: MIDAZOLAM HCL 2MG/2ML 2ml VIAL (1mg/ml) ONE (13:42)
[2024-05-29] MEDS ORDERED: ONDANSETRON HCL 4 MG/2 ML VIAL ONE ×2 (13:42→16:02)
--- NOTE | 2024-05-29 13:51 | DVH ---
CHEST RADIOGRAPH Indication: surgery Technique: Single frontal view of the chest was obtained COMPARISON: None FINDINGS: Lines and Tubes: None Lungs: Clear Pleura: No effusion. No pneumothorax. Cardiomediastinal contours: Unremarkable Bones: Unremarkable IMPRESSION: 1. No acute disease.
--- NOTE | 2024-05-29 15:26 | DVHOP2 ---
Operative Report [id number] AC APPENDICITIS PERICECAL INFLAMMATION DENSE ADHESIONS INTRAABD ABSCESS DRAINAGE OF INTRAABD ABSCESS LYSIS OF ADHESIONS LAP APPENDECTOMY. PARTIAL CECECTOMY EBL 25 CC ONE DRAIN NO COMPLICATIONS GENO GUZMÁN MD May 29, 2024 15:26
[2024-05-29] MEDS ORDERED: GLYCOPYRROLATE 0.2 MG/ML 1ML VIAL ONE (15:36)
[2024-05-29] MEDS ORDERED: NEOSTIGMINE 1 MG/ML INJ (10mg/10ML VIAL) ONE (15:36)
[2024-05-29] MEDS ORDERED: HYDROmorphone HCL 2 MG/ML VL/or syr IV PRN (16:00)
--- NOTE | 2024-05-29 16:01 | DVHOP ---
DATE OF SURGERY: 05/29/2024 PREOPERATIVE DIAGNOSIS: Acute appendicitis. She was found to have intra-abdominal abscess with dense adhesions and cecal inflammation as well. POSTOPERATIVE DIAGNOSIS: Acute appendicitis. She was found to have intra-abdominal abscess with dense adhesions and cecal inflammation as well. PROCEDURE: Laparoscopic appendectomy with drainage of intraabdominal abscess and a partial cecectomy, lysis of adhesions. SURGEON: Curtis Xie MD POLICE INVESTIGATOR: None. ANESTHESIA: General. ESTIMATED BLOOD LOSS: Close to 25 mL. DRAINS: One drain was used. COMPLICATIONS: No complications were encountered. DESCRIPTION OF PROCEDURE: The patient was prepped and draped in the usual sterile fashion in the supine position and a supraumbilical incision was applied, was taken down to the fascia. The Veress needle was introduced and CO2 insufflation was started to a pressure of 15 mmHg. The needle was withdrawn, replaced by the 5 mm trocar and a telescope was introduced and the appendix was found to be acutely inflamed, distended into the pelvis and the pericecal inflammation was noted as well, and there were dense adhesions in that location as well in the ileocecal location and the small bowel itself was fine. Two 5 mm ports were applied, one above the symphysis, the third midway between the upper two and the camera was moved to the lowermost 5 mm port, able to proceed with surgery. The patient was placed in the Trendelenburg and right upper lateral position, the adhesions were taken down. The appendix was released. The cecum had to be released from the paracolic gutter using Harmonic device and the base of the appendix was identified and the transection was done above this to allow the inflamed cecal component to be removed with the specimen as well. This was done using Endo-ALPA stapling device; and once this was done, the mesoappendix also was transected using the Endo-ALPA stapling device, superimposed with a clip as well. Appendix released in this fashion, was retrieved from the supraumbilical wound in the EndoCatch bag without any complication. Abscess was suctioned out from the right lower quadrant as well as the pelvis and a size 19 Minor drainage tube was placed to drain the right lower quadrant along the pelvis, bringing out from the lowermost 5 mm port. After the Tonia powder was applied to the cecal base for hemostasis, the tip of the drainage tube was placed in the right lower quadrant with the loop going into the pelvis, bringing out from the lowermost 5 mm port. After that, one port had been withdrawn, securing the drain with a nylon suture, EndoClose suture was used for the fascial closure of the supraumbilical wound. All the ports were withdrawn after all the CO2 been let out and the patient was placed in supine, the remainder of the wounds were brought together using 3-0 Monocryl suture in a subcuticular fashion. Surgical glue was applied. The patient tolerated the procedure well and was taken back to recovery room in stable condition. MD DOMINIK French/ELLIOTT TID: [id number] RECEIPT: [id number] cc: JAMAL HOLBROOK
[2024-05-29] MEDS: ONDANSETRON HCL 4 MG/2 ML VIAL IV ONE (16:04)
[2024-05-29] MEDS: HYDROmorphone HCL 2 MG/ML VL/or syr IV PRN (16:08)
[2024-05-29] MEDS ORDERED: HYDROmorphone HCL 2 MG/ML VL/or syr ONE (16:08)
--- NOTE | 2024-05-29 20:38 | DVHPN2 ---
Subjective 05/29 - cont have pain in RLQ. reepeat imaging this am with surgery. CT w po con confirms appendicitis, taken to OR. 05/28 - Patient continues to have abdominal pain, conveniently tolerate p.o.. Abdomen is tender right lower quadrant and right upper quadrant. No acute abdomen signs. No peritonitis no guarding or rigidity. Surgery following we will plan to repeat imaging. Reviewed: H&P Changes from previous H/P or p: No Changes General: Per HPI Musculoskeletal: other Skin: No Rash, No Lesions, No Jaundice, No Bruising, No Other Objective Vitals Vital Signs Date Time Temp Pulse Resp B/P (MAP) Pulse Ox O2 Delivery O2 Flow Rate FiO2 05/29/24 17:00 98.0 97 19 160/89 (112) 98 98.0 05/29/24 16:20 Nasal Cannula 2.0 05/29/24 08:00 21 Intake/Output Intake and Output 05/29/24 07:00 Intake Total 370 ml Balance 370 ml Intake Oral 220 ml IV Total 150 ml # Voids 7 Exam GEN: Healthy appearing, well-developed, patient is mild distress from abdominal pain HEENT: NC/AT; MMM. CV: RRR, no m/r/g. LUNGS: Bibasilar rales ABD: Abdomen is tender right lower quadrant and right upper quadrant. No acute abdomen signs. No peritonitis no guarding or rigidity. EXT: skin Warm, well perfused. no rashes. No clubbing, cyanosis, or edema. NEURO: Ambulating with no limitations. No focal deficits. Patient continues to have abdominal pain, conveniently tolerate p.o.. Abdomen is tender right lower quadrant and right upper quadrant. No acute abdomen signs. No peritonitis no guarding or rigidity. Surgery following we will plan to repeat imaging. Medications Current Medications Medications Dose Ordered Sig/[place] Route Start Time Stop Time Status Last Admin Dose Admin Ceftriaxone Sodium 50 ml @ 100 mls/hr DAILY@09 IV 05/27/24 20:08 05/29/24 09:48 100 MLS/HR Metronidazole 100 ml @ 100 mls/hr Q8HR IV 05/27/24 22:00 05/29/24 17:18 100 MLS/HR Acetaminophen/ Hydrocodone Bitart 1 tab Q4HP PRN PO 05/27/24 20:00 05/28/24 14:43 1 TAB Ondansetron HCl 4 mg Q4HP PRN IV 05/27/24 20:00 05/29/24 20:23 4 MG Docusate Sodium 100 mg BIDPRN PRN PO 05/27/24 20:00 Acetaminophen 650 mg Q6HP PRN PO 05/27/24 20:00 05/28/24 09:53 650 MG Morphine Sulfate 2 mg Q4HPRN PRN IV 05/27/24 20:00 05/28/24 04:41 2 MG Dextrose/Sodium Chloride 1,000 ml @ 75 mls/hr [id number] IV 05/27/24 20:00 05/29/24 17:18 75 MLS/HR Nitroglycerin 0.4 mg Q5MINP PRN SL 05/27/24 20:45 Morphine Sulfate 2 mg Q30M PRN IV 05/27/24 20:45 Laboratory Results Laboratory Tests 05/28/24 05:55 Urinalysis Test 05/27/24 11:00 Urine Color Light-yellow (Yellow) Urine Clarity Clear (Clear) Urine pH 5.5 (5.0-9.0) Urine Specific [place] 1.024 (1.001-1.035) Urine Protein Trace (Negative) H Urine Ketones Negative (Negative) Urine Blood Trace /uL (Negative) H Urine Nitrite Negative (Negative) Urine Bilirubin Negative (Negative) Urine Urobilinogen Normal mg/dL (Negative) Urine Leukocyte Esterase 1+ /uL (Negative) Urine RBC 1 /hpf (0 - 4) Urine WBC 1 /hpf (0 - 5) Urine Squamous Epithelial Cells Few /hpf (<5) Urine Bacteria Few /hpf (None Seen) H Urine Mucus Few (None Seen) Urine Glucose Normal mg/dL (Normal) Microbiology Microbiology Date/Time Source Procedure Growth Status 05/27/24 11:00 Voided Urine Urine Culture - Preliminary Resulted Labs and/or images reviewed: Labs reviewed by me, Image(s) reviewed by me Assessment/Plan Assessment/Plan update 05/29 - cont have pain in RLQ. reepeat imaging this am with surgery. CT w po con confirms appendicitis, taken to OR. # acute intractable abdominal pain # possible acute appendicitis, rule out # left hydronephrosis possible # intravascular volume depletion # decreased p.o. tolerance, intractable nausea - patient presenting with acute abdominal pain epigastric radiating to the back, - lipase not collected on admit, no leukocytosis no neutrophilia - UA SG 1.024, concentrated urine - CT abdpelv w/o Con - left hydronephrosis possible, possible acute appendicitis. -started on IV fluids - IV antibiotics ceftriaxone and Flagyl IV -surgery consulted and following, s/p appendicitis. - CLD Diet CLD DVT prophylaxis Lovenox subQ GI prophylaxis Protonix IV daily Med tele Full code Plan discussed with: Patient My Orders Orders - JAMAL LY MD Procedure Category Date Status Time Ct Ab Pel With Oral CT 05/29/24 Resulted Con Only 07:37 Date of Service: May 29, 2024 Billing Provider: JAMAL LY MD Common Visit Codes: [id number] INP/OBS CARE(HIGH) JAMAL LY MD May 29, 2024 20:38
[2024-05-30] VITALS (8 sets, daily range): BP systolic 123–142; BP diastolic 69–89; PULSE 62–94; RESP 16–18; TEMP 98.3–99.9; O2SAT 92–98
[2024-05-30 07:00] LABS: Basophils # (auto) 0 10 ^3/uL (0-0.2); Basophils % (auto) 0.2 % (0.0-2.0); Eosinophils # (auto) 0 10 ^3/uL (0-0.8); Eosinophils % (auto) 0.1 % (0.0-7.0); Hematocrit 35.6 % (36.0-46.0); Hemoglobin 12.3 g/dL (12.2-16.2); Lymphocytes # (auto) 2.2 10 ^3/uL (0.4-5.4); Lymphocytes % (auto) 21.1 % (10.0-50.0); Mean Corpuscular Hemoglobin 30.6 pg (28.0-32.0); Mean Corpuscular Hgb Conc. 34.4 g/dL (32.0-36.0); Mean Corpuscular Volume 88.9 fL (80.0-100.0); Monocytes % (auto) 10.1 % (0.0-12.0); Neutrophils # (auto) 7.1 10 ^3/uL (1.6-8.6); Neutrophils % (auto) 68.5 % (37.0-80.0); Platelet Count (auto) 380 10^3/uL (140-450); Red Blood Cells 4.01 10^6/uL (4.0-5.20); Red Cell Distribution Width 12.6 % (11.8-14.3); White Blood Cell 10.4 10^3/uL (4.4-10.8)
[2024-05-30 07:38] LABS: Alkaline Phosphatase 73 U/L (46-116); Anion Gap 9 (5-15); BUN/Creatinine Ratio 12.3 (10.0-20.0); Carbon Dioxide 26 mmol/L (20-31); Chloride 106 mmol/L (98-107); Glucose 93 mg/dL (74-106); Sodium 141 mmol/L (136-145)
[2024-05-30 07:39] LABS: Albumin 3.8 g/dL (3.2-4.8); Total Protein 6.4 g/dL (5.7-8.2)
[2024-05-30 07:43] LABS: Alanine Aminotransferase < 9 U/L (7-40); Aspartate Aminotransferase 11 U/L (13-40); Bilirubin, Total 0.3 mg/dL (0.2-1.0); Blood Urea Nitrogen 9 mg/dL (9-23); Potassium 3.4 mmol/L (3.5-5.1)
--- NOTE | 2024-05-30 12:01 | DVHPN2 ---
Progress Note Date Seen: May 30, 2024 Medical Necessity Reason Pt with a Central, PICC or Fol: No Objective vital signs Vital Sign Date Time Temp Pulse Resp B/P (MAP) Pulse Ox O2 Delivery O2 Flow Rate FiO2 05/30/24 09:00 98.6 87 16 132/69 (90) 95 98.6 05/30/24 08:00 Nasal Cannula* 1 24 Total Intake and Output 05/29/24 05/29/24 05/30/24 15:00 23:00 07:00 Intake Total 50 ml 100 ml 900 ml Output Total 30 ml 450 ml Balance 50 ml 70 ml 450 ml medications Current Medications Medications Dose Ordered Sig/[place] Route Start Time Stop Time Status Last Admin Dose Admin Ceftriaxone Sodium 50 ml @ 100 mls/hr DAILY@09 IV 05/27/24 20:08 05/30/24 09:08 100 MLS/HR Metronidazole 100 ml @ 100 mls/hr Q8HR IV 05/27/24 22:00 05/30/24 05:12 100 MLS/HR Acetaminophen/ Hydrocodone Bitart 1 tab Q4HP PRN PO 05/27/24 20:00 05/30/24 11:29 1 TAB Ondansetron HCl 4 mg Q4HP PRN IV 05/27/24 20:00 05/29/24 20:23 4 MG Docusate Sodium 100 mg BIDPRN PRN PO 05/27/24 20:00 Acetaminophen 650 mg Q6HP PRN PO 05/27/24 20:00 05/28/24 09:53 650 MG Morphine Sulfate 2 mg Q4HPRN PRN IV 05/27/24 20:00 05/28/24 04:41 2 MG Dextrose/Sodium Chloride 1,000 ml @ 75 mls/hr [id number] IV 05/27/24 20:00 05/29/24 17:18 75 MLS/HR Nitroglycerin 0.4 mg Q5MINP PRN SL 05/27/24 20:45 Morphine Sulfate 2 mg Q30M PRN IV 05/27/24 20:45 laboratory and microbiology Laboratory Tests 05/30/24 06:07 Test 05/30/24 06:07 Range/Units Serum Glucose 93 74-106 mg/dL Microbiology Date/Time Source Procedure Growth Status 05/27/24 11:00 Voided Urine Urine Culture - Preliminary Resulted Problem List/Assessment/Plan Problem List/Assessment/Plan AFEBRILE VSS ABD SOFT NO BM DRAIN 30 CC SEROSANGUINEOUS WOUNDS HEALED NO COMPLICATIONS CONTINUE CLEAR LIQUIDS Plan discussed with: Patient My Orders My Orders Orders - GENO GUZMÁN MD Procedure Category Date Status Time Chest Xray 1 View XY 05/29/24 Resulted 12:26 Obtain Consent For: ORDERS 05/29/24 Transmitted 13:13 Obtain Consent For [place] 05/29/24 In Process Anesthesia 13:13 GENO GUZMÁN MD May 30, 2024 12:01
--- NOTE | 2024-05-30 14:23 | DVHPN2 ---
Subjective Update the 05/30 patient is started on diet this morning. Abdominal pain still present, hypoactive bowel sounds. Patient does not have any nausea and feeling much improved. Surgery to eval today. We will keep patient until bowel function returns. still requiring pain control. 05/29 - cont have pain in RLQ. reepeat imaging this am with surgery. CT w po con confirms appendicitis, taken to OR. 05/28 - Patient continues to have abdominal pain, conveniently tolerate p.o.. Abdomen is tender right lower quadrant and right upper quadrant. No acute abdomen signs. No peritonitis no guarding or rigidity. Surgery following we will plan to repeat imaging. Reviewed: H&P Changes from previous H/P or p: No Changes General: Per HPI Musculoskeletal: other Skin: No Rash, No Lesions, No Jaundice, No Bruising, No Other Objective Vitals Vital Signs Date Time Temp Pulse Resp B/P (MAP) Pulse Ox O2 Delivery O2 Flow Rate FiO2 05/30/24 13:00 98.3 76 16 123/73 (90) 94 98.3 05/30/24 08:00 Nasal Cannula* 1 24 Intake/Output Intake and Output 05/30/24 07:00 Intake Total 1050 ml Output Total 480 ml Balance 570 ml Intake Oral 50 ml IV Total 1000 ml Output Urine Total 400 ml Drainage Total 80 ml # Voids 2 Exam GEN: Healthy appearing, well-developed, patient is mild distress from abdominal pain SP appendectomy laparoscopic HEENT: NC/AT; MMM. CV: RRR, no m/r/g. LUNGS: Bibasilar rales ABD: Abdomen is no tender right lower quadrant , visible 3 puncture wounds with little bit no erythema or drainage or purulence but mild tenderness in that region. Abdominal binder present which is relieving his pain.. No acute abdomen signs. No peritonitis no guarding or rigidity. Bowel sounds are hypoactive EXT: skin Warm, well perfused. no rashes. No clubbing, cyanosis, or edema. NEURO: Ambulating with no limitations. No focal deficits. Patient continues to have abdominal pain, conveniently tolerate p.o.. Abdomen is tender right lower quadrant and right upper quadrant. No acute abdomen signs. No peritonitis no guarding or rigidity. Surgery following we will plan to repeat imaging. Medications Current Medications Medications Dose Ordered Sig/[place] Route Start Time Stop Time Status Last Admin Dose Admin Ceftriaxone Sodium 50 ml @ 100 mls/hr DAILY@09 IV 05/27/24 20:08 05/30/24 09:08 100 MLS/HR Metronidazole 100 ml @ 100 mls/hr Q8HR IV 05/27/24 22:00 05/30/24 13:49 100 MLS/HR Acetaminophen/ Hydrocodone Bitart 1 tab Q4HP PRN PO 05/27/24 20:00 05/30/24 11:29 1 TAB Ondansetron HCl 4 mg Q4HP PRN IV 05/27/24 20:00 05/29/24 20:23 4 MG Docusate Sodium 100 mg BIDPRN PRN PO 05/27/24 20:00 Acetaminophen 650 mg Q6HP PRN PO 05/27/24 20:00 05/28/24 09:53 650 MG Morphine Sulfate 2 mg Q4HPRN PRN IV 05/27/24 20:00 05/28/24 04:41 2 MG Dextrose/Sodium Chloride 1,000 ml @ 75 mls/hr [id number] IV 05/27/24 20:00 05/29/24 17:18 75 MLS/HR Nitroglycerin 0.4 mg Q5MINP PRN SL 05/27/24 20:45 Morphine Sulfate 2 mg Q30M PRN IV 05/27/24 20:45 Laboratory Results Laboratory Tests 05/30/24 06:07 Chemistry Test 05/30/24 06:07 Albumin 3.8 g/dL (3.2-4.8) Calcium Level 9.0 mg/dL (8.7-10.4) Total Protein 6.4 g/dL (5.7-8.2) LFT Test 05/30/24 06:07 Alanine Aminotransferase (ALT) < 9 U/L (7-40) Alkaline Phosphatase 73 U/L (46-116) Aspartate Amino Transferase (AST) 11 U/L (13-40) L Total Bilirubin 0.3 mg/dL (0.2-1.0) Urinalysis Test 05/27/24 11:00 Urine Color Light-yellow (Yellow) Urine Clarity Clear (Clear) Urine pH 5.5 (5.0-9.0) Urine Specific [place] 1.024 (1.001-1.035) Urine Protein Trace (Negative) H Urine Ketones Negative (Negative) Urine Blood Trace /uL (Negative) H Urine Nitrite Negative (Negative) Urine Bilirubin Negative (Negative) Urine Urobilinogen Normal mg/dL (Negative) Urine Leukocyte Esterase 1+ /uL (Negative) Urine RBC 1 /hpf (0 - 4) Urine WBC 1 /hpf (0 - 5) Urine Squamous Epithelial Cells Few /hpf (<5) Urine Bacteria Few /hpf (None Seen) H Urine Mucus Few (None Seen) Urine Glucose Normal mg/dL (Normal) Microbiology Microbiology Date/Time Source Procedure Growth Status 05/27/24 11:00 Voided Urine Urine Culture - Final Complete Labs and/or images reviewed: Labs reviewed by me, Image(s) reviewed by me Assessment/Plan Assessment/Plan Update 05/30 patient is started on diet this morning. Abdominal pain still present, hypoactive bowel sounds. Patient does not have any nausea and feeling much improved. Surgery to eval today. We will keep patient until bowel function returns. still requiring pain control. # acute intractable abdominal pain # possible acute appendicitis, rule out # left hydronephrosis possible # intravascular volume depletion # decreased p.o. tolerance, intractable nausea - patient presenting with acute abdominal pain epigastric radiating to the back, - lipase not collected on admit, no leukocytosis no neutrophilia - UA SG 1.024, concentrated urine - CT abdpelv w/o Con - left hydronephrosis possible, possible acute appendicitis. -started on IV fluids - IV antibiotics ceftriaxone and Flagyl IV -surgery consulted and following, s/p laparoscopic appendectomy - CLD -p.r.n. analgesia, p.r.n. antiemetics Diet CLD DVT prophylaxis Lovenox subQ GI prophylaxis Protonix IV daily Med tele Full code Plan discussed with: Patient My Orders Orders - JAMAL LY MD Procedure Category Date Status Time Clear Liq Diet DIET 05/30/24 Transmitted Breakfast Date of Service: May 30, 2024 Billing Provider: JAMAL LY MD Common Visit Codes: [id number] INP/OBS CARE(HIGH) JAMAL LY MD May 30, 2024 14:23
[2024-05-31] VITALS (8 sets, daily range): BP systolic 115–141; BP diastolic 72–91; PULSE 81–92; RESP 9–18; TEMP 97.5–99.5; O2SAT 91–96
[2024-05-31 07:35] LABS: Alkaline Phosphatase 72 U/L (46-116); Anion Gap 10 (5-15); BUN/Creatinine Ratio 9.7 (10.0-20.0); Calcium 9.3 mg/dL (8.7-10.4); Carbon Dioxide 26 mmol/L (20-31); Chloride 105 mmol/L (98-107); Glucose 83 mg/dL (74-106); Sodium 141 mmol/L (136-145)
[2024-05-31 07:36] LABS: Albumin 3.9 g/dL (3.2-4.8); Aspartate Aminotransferase 14 U/L (13-40); Bilirubin, Total 0.3 mg/dL (0.2-1.0); Total Protein 6.5 g/dL (5.7-8.2)
[2024-05-31 07:37] LABS: Basophils # (auto) 0 10 ^3/uL (0-0.2); Basophils % (auto) 0.3 % (0.0-2.0); Eosinophils # (auto) 0.1 10 ^3/uL (0-0.8); Hematocrit 38.5 % (36.0-46.0); Lymphocytes # (auto) 2.5 10 ^3/uL (0.4-5.4); Lymphocytes % (auto) 29.1 % (10.0-50.0); Mean Corpuscular Hemoglobin 30.1 pg (28.0-32.0); Mean Corpuscular Hgb Conc. 33.7 g/dL (32.0-36.0); Mean Corpuscular Volume 89.3 fL (80.0-100.0); Monocytes # (auto) 0.8 10 ^3/uL (0-1.3); Monocytes % (auto) 9.1 % (0.0-12.0); Neutrophils # (auto) 5.2 10 ^3/uL (1.6-8.6); Neutrophils % (auto) 60.5 % (37.0-80.0); Nucleated Red Blood Cells % 0.1 %; Platelet Count (auto) 445 10^3/uL (140-450); Red Blood Cells 4.31 10^6/uL (4.0-5.20); White Blood Cell 8.5 10^3/uL (4.4-10.8)
[2024-05-31 07:48] LABS: Alanine Aminotransferase 9 U/L (7-40); Blood Urea Nitrogen 7 mg/dL (9-23); Potassium 3.3 mmol/L (3.5-5.1)
[2024-05-31] MEDS: POTASSIUM CHL 20 Meq TABLET PO ONE (14:56)
--- NOTE | 2024-05-31 17:08 | DVHPN2 ---
Progress Note Date Seen: May 31, 2024 Medical Necessity Reason Pt with a Central, PICC or Fol: No Objective vital signs Vital Sign Date Time Temp Pulse Resp B/P (MAP) Pulse Ox O2 Delivery O2 Flow Rate FiO2 05/31/24 16:39 98.8 87 17 141/91 (108) 94 98.8 05/31/24 08:00 Room Air* 0 21 Total Intake and Output 05/30/24 05/30/24 05/31/24 15:00 23:00 07:00 Intake Total 150 ml 400 ml 200 ml Output Total 45 ml Balance 150 ml 355 ml 200 ml medications Current Medications Medications Dose Ordered Sig/[place] Route Start Time Stop Time Status Last Admin Dose Admin Ceftriaxone Sodium 50 ml @ 100 mls/hr DAILY@09 IV 05/27/24 20:08 05/31/24 09:14 100 MLS/HR Metronidazole 100 ml @ 100 mls/hr Q8HR IV 05/27/24 22:00 05/31/24 14:55 100 MLS/HR Acetaminophen/ Hydrocodone Bitart 1 tab Q4HP PRN PO 05/27/24 20:00 05/31/24 10:40 1 TAB Ondansetron HCl 4 mg Q4HP PRN IV 05/27/24 20:00 05/29/24 20:23 4 MG Docusate Sodium 100 mg BIDPRN PRN PO 05/27/24 20:00 Acetaminophen 650 mg Q6HP PRN PO 05/27/24 20:00 05/28/24 09:53 650 MG Morphine Sulfate 2 mg Q4HPRN PRN IV 05/27/24 20:00 05/28/24 04:41 2 MG Nitroglycerin 0.4 mg Q5MINP PRN SL 05/27/24 20:45 Morphine Sulfate 2 mg Q30M PRN IV 05/27/24 20:45 laboratory and microbiology Laboratory Tests 05/31/24 05:12 Test 05/31/24 05:12 Range/Units Serum Glucose 83 74-106 mg/dL Microbiology Date/Time Source Procedure Growth Status 05/27/24 11:00 Voided Urine Urine Culture - Final Complete Problem List/Assessment/Plan Problem List/Assessment/Plan AFEBRILE VSS ABD SOFT NO BM DRAIN 30 CC SEROSANGUINEOUS WOUNDS HEALED NO COMPLICATIONS ADVANCE DIET Plan discussed with: Patient GENO GUZMÁN MD May 31, 2024 17:08
--- NOTE | 2024-05-31 20:46 | DVHPN2 ---
Subjective Update 05/31 patient tolerating diet, bowel function appears to be returning. Patient having output in DEEPTHI drain. Patient prefers to have DEEPTHI drain taking care of prior to discharge. Surgery following, plan to advance diet. No bowel movement yet. Likely1 more day to advance diet, return of bowel function, possible removal of DEEPTHI drain. 05/30 patient is started on diet this morning. Abdominal pain still present, hypoactive bowel sounds. Patient does not have any nausea and feeling much improved. Surgery to eval today. We will keep patient until bowel function returns. still requiring pain control. 05/29 - cont have pain in RLQ. reepeat imaging this am with surgery. CT w po con confirms appendicitis, taken to OR. 05/28 - Patient continues to have abdominal pain, conveniently tolerate p.o.. Abdomen is tender right lower quadrant and right upper quadrant. No acute abdomen signs. No peritonitis no guarding or rigidity. Surgery following we will plan to repeat imaging. Reviewed: H&P Changes from previous H/P or p: No Changes General: Per HPI Musculoskeletal: other Skin: No Rash, No Lesions, No Jaundice, No Bruising, No Other Objective Vitals Vital Signs Date Time Temp Pulse Resp B/P (MAP) Pulse Ox O2 Delivery O2 Flow Rate FiO2 05/31/24 16:39 98.8 87 17 141/91 (108) 94 98.8 05/31/24 08:00 Room Air* 0 21 Intake/Output Intake and Output 05/31/24 07:00 Intake Total 750 ml Output Total 45 ml Balance 705 ml Intake Oral 400 ml IV Total 350 ml Drainage Total 45 ml # Voids 4 Exam GEN: Healthy appearing, well-developed, patient is mild distress from abdominal pain SP appendectomy laparoscopic HEENT: NC/AT; MMM. CV: RRR, no m/r/g. LUNGS: Bibasilar rales ABD: Abdomen is no tender right lower quadrant , visible 3 puncture wounds with little bit no erythema or drainage or purulence but mild tenderness in that region. Abdominal binder present which is relieving his pain.. No acute abdomen signs. No peritonitis no guarding or rigidity. Bowel sounds are hypoactive. DEEPTHI drain in place with serosanguineous output. EXT: skin Warm, well perfused. no rashes. No clubbing, cyanosis, or edema. NEURO: Ambulating with no limitations. No focal deficits. Patient continues to have abdominal pain, conveniently tolerate p.o.. Abdomen is tender right lower quadrant and right upper quadrant. No acute abdomen signs. No peritonitis no guarding or rigidity. Surgery following we will plan to repeat imaging. Medications Current Medications Medications Dose Ordered Sig/[place] Route Start Time Stop Time Status Last Admin Dose Admin Ceftriaxone Sodium 50 ml @ 100 mls/hr DAILY@09 IV 05/27/24 20:08 05/31/24 09:14 100 MLS/HR Metronidazole 100 ml @ 100 mls/hr Q8HR IV 05/27/24 22:00 05/31/24 14:55 100 MLS/HR Acetaminophen/ Hydrocodone Bitart 1 tab Q4HP PRN PO 05/27/24 20:00 05/31/24 20:27 1 TAB Ondansetron HCl 4 mg Q4HP PRN IV 05/27/24 20:00 05/29/24 20:23 4 MG Docusate Sodium 100 mg BIDPRN PRN PO 05/27/24 20:00 Acetaminophen 650 mg Q6HP PRN PO 05/27/24 20:00 05/28/24 09:53 650 MG Morphine Sulfate 2 mg Q4HPRN PRN IV 05/27/24 20:00 05/28/24 04:41 2 MG Nitroglycerin 0.4 mg Q5MINP PRN SL 05/27/24 20:45 Morphine Sulfate 2 mg Q30M PRN IV 05/27/24 20:45 Laboratory Results Laboratory Tests 05/31/24 05:12 Chemistry Test 05/31/24 05:12 Albumin 3.9 g/dL (3.2-4.8) Calcium Level 9.3 mg/dL (8.7-10.4) Total Protein 6.5 g/dL (5.7-8.2) LFT Test 05/31/24 05:12 Alanine Aminotransferase (ALT) 9 U/L (7-40) Alkaline Phosphatase 72 U/L (46-116) Aspartate Amino Transferase (AST) 14 U/L (13-40) Total Bilirubin 0.3 mg/dL (0.2-1.0) Urinalysis Test 05/27/24 11:00 Urine Color Light-yellow (Yellow) Urine Clarity Clear (Clear) Urine pH 5.5 (5.0-9.0) Urine Specific [place] 1.024 (1.001-1.035) Urine Protein Trace (Negative) H Urine Ketones Negative (Negative) Urine Blood Trace /uL (Negative) H Urine Nitrite Negative (Negative) Urine Bilirubin Negative (Negative) Urine Urobilinogen Normal mg/dL (Negative) Urine Leukocyte Esterase 1+ /uL (Negative) Urine RBC 1 /hpf (0 - 4) Urine WBC 1 /hpf (0 - 5) Urine Squamous Epithelial Cells Few /hpf (<5) Urine Bacteria Few /hpf (None Seen) H Urine Mucus Few (None Seen) Urine Glucose Normal mg/dL (Normal) Microbiology Microbiology Date/Time Source Procedure Growth Status 05/27/24 11:00 Voided Urine Urine Culture - Final Complete Labs and/or images reviewed: Labs reviewed by me, Image(s) reviewed by me Assessment/Plan Assessment/Plan Update 05/31 patient tolerating diet, bowel function appears to be returning. Patient having output in DEEPTHI drain. Patient prefers to have DEEPTHI drain taking care of prior to discharge. Surgery following, plan to advance diet. No bowel movement yet. Likely1 more day to advance diet, return of bowel function, possible removal of DEEPTIH drain. # Acute Appendicitis # acute intractable abdominal pain, resolving # left hydronephrosis # intravascular volume depletion, # decreased p.o. tolerance, intractable nausea resolving - patient presenting with acute abdominal pain epigastric radiating to the back, - lipase not collected on admit, no leukocytosis no neutrophilia - UA SG 1.024, concentrated urine - CT abdpelv w/o Con - left hydronephrosis possible, possible acute appendicitis. -started on IV fluids - IV antibiotics ceftriaxone and Flagyl IV -surgery consulted and following, s/p laparoscopic appendectomy - CLD -p.r.n. analgesia, p.r.n. antiemetics Diet CLD DVT prophylaxis Lovenox subQ GI prophylaxis Protonix IV daily Med tele Full code Plan discussed with: Patient Date of Service: May 31, 2024 Billing Provider: JAMAL LY MD Common Visit Codes: [id number] INP/OBS CARE(HIGH) JAMAL LY MD May 31, 2024 20:46
[2024-06-01] VITALS (7 sets, daily range): BP systolic 97–131; BP diastolic 70–84; PULSE 80–93; RESP 16–17; TEMP 36.8; O2SAT 93–95
--- NOTE | 2024-06-01 15:51 | DVHPN2 ---
Progress Note Date Seen: Jun 01, 2024 Medical Necessity Reason Pt with a Central, PICC or Fol: No Objective vital signs Vital Sign Date Time Temp Pulse Resp B/P (MAP) Pulse Ox O2 Delivery O2 Flow Rate FiO2 06/01/24 13:17 98.2 84 16 125/84 (98) 93 98.2 06/01/24 08:00 Room Air* 0 21 Total Intake and Output 05/31/24 05/31/24 06/01/24 15:00 23:00 07:00 Intake Total 365 ml 860 ml 650 ml Output Total 30 ml 25 ml 10 ml Balance 335 ml 835 ml 640 ml medications Current Medications Medications Dose Ordered Sig/[place] Route Start Time Stop Time Status Last Admin Dose Admin Ceftriaxone Sodium 50 ml @ 100 mls/hr DAILY@09 IV 05/27/24 20:08 06/01/24 08:11 100 MLS/HR Metronidazole 100 ml @ 100 mls/hr Q8HR IV 05/27/24 22:00 06/01/24 13:54 100 MLS/HR Acetaminophen/ Hydrocodone Bitart 1 tab Q4HP PRN PO 05/27/24 20:00 05/31/24 20:27 1 TAB Ondansetron HCl 4 mg Q4HP PRN IV 05/27/24 20:00 05/29/24 20:23 4 MG Docusate Sodium 100 mg BIDPRN PRN PO 05/27/24 20:00 Acetaminophen 650 mg Q6HP PRN PO 05/27/24 20:00 05/28/24 09:53 650 MG Morphine Sulfate 2 mg Q4HPRN PRN IV 05/27/24 20:00 05/28/24 04:41 2 MG Nitroglycerin 0.4 mg Q5MINP PRN SL 05/27/24 20:45 Morphine Sulfate 2 mg Q30M PRN IV 05/27/24 20:45 laboratory and microbiology Laboratory Tests 05/31/24 05:12 Test 05/31/24 05:12 Range/Units Serum Glucose 83 74-106 mg/dL Microbiology Date/Time Source Procedure Growth Status 05/27/24 11:00 Voided Urine Urine Culture - Final Complete Problem List/Assessment/Plan Problem List/Assessment/Plan AFEBRILE VSS ABD SOFT BM + DRAIN 10 CC SEROSANGUINEOUS WOUNDS HEALED NO COMPLICATIONS ADVANCE DIET DC DRAIN CLEARED FOR DISCHARGE INSTRUCTIONS RE DIET ACTIVITY F/UP GIVEN Plan discussed with: Patient GENO GUZMÁN MD Jun 01, 2024 15:51
[2024-06-01] MEDS ORDERED: ZOFR4T PO (15:57)
[2024-06-01] MEDS ORDERED: HYDR-4798 PO (15:57)
[2024-06-01] MEDS ORDERED: AUG875T PO (15:57)
--- NOTE | 2024-06-01 16:02 | DVHDS2 ---
Discharge Summary Date of Admission May 27, 2024 at 20:45 Date of Discharge: Jun 01, 2024 Labs/Diagnostic Data: Laboratory Results Test 05/31/24 05:12 05/27/24 11:00 White Blood Count 8.5 10^3/uL (4.4-10.8) Red Blood Count 4.31 10^6/uL (4.0-5.20) Hemoglobin 13.0 g/dL (12.2-16.2) Hematocrit 38.5 % (36.0-46.0) Mean Corpuscular Volume 89.3 fL (80.0-100.0) Mean Corpuscular Hemoglobin 30.1 pg (28.0-32.0) Mean Corpuscular Hemoglobin Concent 33.7 g/dL (32.0-36.0) Red Cell Distribution Width 13.0 % (11.8-14.3) Platelet Count 445 10^3/uL (140-450) Mean Platelet Volume 7.6 fL (6.9-10.8) Neutrophils (%) (Auto) 60.5 % (37.0-80.0) Lymphocytes (%) (Auto) 29.1 % (10.0-50.0) Monocytes (%) (Auto) 9.1 % (0.0-12.0) Eosinophils (%) (Auto) 1.0 % (0.0-7.0) Basophils (%) (Auto) 0.3 % (0.0-2.0) Neutrophils # (Auto) 5.2 10 ^3/uL (1.6-8.6) Lymphocytes # (Auto) 2.5 10 ^3/uL (0.4-5.4) Monocytes # (Auto) 0.8 10 ^3/uL (0-1.3) Eosinophils # (Auto) 0.1 10 ^3/uL (0-0.8) Basophils # (Auto) 0 10 ^3/uL (0-0.2) Nucleated Red Blood Cells 0.1 % Sodium Level 141 mmol/L (136-145) Potassium Level 3.3 mmol/L (3.5-5.1) Chloride Level 105 mmol/L (98-107) Carbon Dioxide Level 26 mmol/L (20-31) Anion Gap 10 (5-15) Blood Urea Nitrogen 7 mg/dL (9-23) Creatinine 0.72 mg/dL (0.550-1.02) Glomerular Filtration Rate Calc 98 mL/min (>90) BUN/Creatinine Ratio 9.7 (10.0-20.0) Serum Glucose 83 mg/dL (74-106) Calcium Level 9.3 mg/dL (8.7-10.4) Total Bilirubin 0.3 mg/dL (0.2-1.0) Aspartate Amino Transferase (AST) 14 U/L (13-40) Alanine Aminotransferase (ALT) 9 U/L (7-40) Alkaline Phosphatase 72 U/L (46-116) Total Protein 6.5 g/dL (5.7-8.2) Albumin 3.9 g/dL (3.2-4.8) Urine Color Light-yellow (Yellow) Urine Clarity Clear (Clear) Urine pH 5.5 (5.0-9.0) Urine Specific [place] 1.024 (1.001-1.035) Urine Protein Trace (Negative) Urine Ketones Negative (Negative) Urine Blood Trace /uL (Negative) Urine Nitrite Negative (Negative) Urine Bilirubin Negative (Negative) Urine Urobilinogen Normal mg/dL (Negative) Urine Leukocyte Esterase 1+ /uL (Negative) Urine RBC 1 /hpf (0 - 4) Urine WBC 1 /hpf (0 - 5) Urine Squamous Epithelial Cells Few /hpf (<5) Urine Bacteria Few /hpf (None Seen) Urine Mucus Few (None Seen) Urine Glucose Normal mg/dL (Normal) Other Laboratory Tests 05/31/24 05:12 Brief Hx & Hospital Course: 54-year-old female with PMHx of breast cancer who presented to [facility] ED with complaint of epigastric abdominal pain for the past 1 week duration. Patient reports symptoms progressively get worse with intractable abdominal pain, radiating to her back, to left lower extremity, rating pain 7/10 numeric scale, getting worse that prompted this visit. on exam paient has TTP RLQ, no garuding or rigidity. UA SG 1.024, concentrated urine. Initial CT abdpel w/o con possible appendicitis. repeat ct abdpelb w po con show acute appendicitis. started on iv abx ctx/flagyl, iv fluids, prn analgesia. surgeyr consulted and taken to OR which shows acute complicated appendicitis with abscess and cecal inflammation. patient undergoes laporatory appendectomy with DEEPTHI drain. post-op period uncomplicated. bowel function return, DEEPTHI drain removed. patient stable for dc with plan below. diagnosis: acute complicated appendicitis with abscess and cecal inflammation; intravascular volume depletion; decreased PO tolerance, reslved; initractable nausea, resolved; intractable abdominal pain, resolved; history breast CA; discharge plan: - augmentin 875mg 2x/day for x5 days - norco as needed (if tylenol, ibuprofen fail); zofran as needed for nausea - full liquid diet or puree diet for x 1 week - keep abdominal binder on as needed for pain - follow-up with PCP for discharge review - follow-up with surgery to remove abdominal binder and surgery follow-up - continue other home medications not mentioned above. Condition at Discharge: Stable Final Diagnosis/Problems List acute complicated appendicitis with abscess and cecal inflammation; intravascular volume depletion; decreased PO tolerance, reslved; initractable nausea, resolved; intractable abdominal pain, resolved; history breast CA; Discharge Disposition: Home Discharge Instruct/Medications Diet: See Comment Diet comment: FLD Activity: No Restrictions, As Tolerated Follow Up/Referral: pcp , surgery Medications: below Discharge Statement: "Patient was advised to return to the ER or call 911 if any headaches, dizziness, shortness of breath, chest pain, abdominal pain, bleeding, fevers, or worsening of medical condition. Patient was counseled about treatment plan, medications, possible side effects, patientverbalized understanding. All questions were answered to the best of my ability. This discharge took greater then 30 minutes in planning, reviewing documentation, counseling the patient, and discussing with other team members." ASSESSMENT ASSESSMENT Assessment acute complicated appendicitis with abscess and cecal inflammation; intravascular volume depletion; decreased PO tolerance, reslved; initractable nausea, resolved; intractable abdominal pain, resolved; history breast CA; Date of Service: Jun 01, 2024 Billing Provider: JAMAL LY MD Common Visit Codes: [id number] DISCH DAY >30min JAMAL LY MD Jun 01, 2024 16:02
--- NOTE | 2024-06-01 18:01 | ECG ---
[facility] Test Date: 2024-05-27 Test Time: 09:49:33 Pat Name: MORGAN FREIRE Department: ER Room: [address] [place] [address] Gender: F Title Agent: DAGO : 1970 Requested By: ANGELIKA SAAVEDRA Order Number: [id number] Reading MD: Pacheco Hoang Measurements Intervals [place] Rate: 81 P: 84 ND: 135 QRS: 88 QRSD: 98 T: 79 QT: 368 QTc: 428 Interpretive Statements Sinus rhythm Electronically Signed On 06-01-2024 18:13:46 PST by Pacheco Hoang Please click the below link to view image of tracing.
== END 2024-06-01 18:30 | disposition home or self-care (01) | DRG 330 ==
LOC: ER 09:33 → TELE 20:45 → TELE-E-ADS 23:05 → EAST 05-30 17:50
PROVIDERS: ADMIT Nurse Practitioner Family; ATTEND Student in an Organized Health Care Education/Training Program
PROC: 0DBH4ZZ Excision of Cecum, Percutaneous Endoscopic Approach (ICD-10-PCS; 2024-05-29)
PROC: 0DTJ4ZZ Resection of Appendix, Percutaneous Endoscopic Approach (ICD-10-PCS; principal; 2024-05-29 13:41)
DX: K35.33 Acute appendicitis with perforation, localized peritonitis, and gangrene, with abscess (principal); N13.30 Unspecified hydronephrosis; E86.9 Volume depletion, unspecified; K66.0 Peritoneal adhesions (postprocedural) (postinfection); K80.20 Calculus of gallbladder without cholecystitis without obstruction; Z85.3 Personal history of malignant neoplasm of breast; Z83.3 Family history of diabetes mellitus; Z82.49 Family history of ischemic heart disease and other diseases of the circulatory system
CPT/HCPCS: 36415; 71045; 74176; 74177; 80053; 81001; 85025; 87086; 93005; 96374; 96375; 99291; G0378; J2003; J2250; J2405; J2470; J2704; J3490